=== PATIENT | male | born 1985 | race Caucasian/White ===

== ENCOUNTER → 2018-12-13 | Outpatient (REF) | payer OTHER | LOC: M SFHCLERA 15:44 | PROVIDERS: ATTEND Nurse Practitioner Family | DX: J02.9 Acute pharyngitis, unspecified (principal) ==

== ENCOUNTER → 2022-02-24 | Outpatient (REF) | payer OTHER | LOC: M LAB REF 16:05 | PROVIDERS: ATTEND Physician Assistant | DX: R05.9 Cough, unspecified (principal) ==